=== PATIENT | male | born 1970 | race Caucasian/White ===

== ENCOUNTER 2025-02-15 08:47 | Inpatient (IN) | payer BC, OTHER ==
[~2025-02-15] VITALS: Ht 177.8 cm; Wt 112.0 kg
--- NOTE | 2025-02-15 09:13 | ECG ---
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
[2025-02-15 09:30] VITALS: PULSE 69; RESP 13; O2SAT 96
--- NOTE | 2025-02-15 09:32 | ED.PDOC ---
HPI Comments 54 year old male with PMHx HTN presents to the ED with a chief complaint of palpitations onset 2 weeks. Patient states he has been experiencing intermittent palpations for the past 2 weeks. He stopped taking BP medication November 2024. Patient was driving from [employer] to [employer] for a job, began experiencing palpitations, lightheadedness, RT arm "stiffness", came to ED. Upon ED arrival patient was hypertensive with BP of 173/102. Denies fever, chills, chest pain, shortness of breath, nausea, vomiting, diarrhea, dizziness, blurred vision, numbness/tingling. No other symptoms or modifying factors present at this time. Chief Complaint: Palpitations Time Seen by MD: 09:25 Reviewed Notes: Medications, Allergies Allergies: Coded Allergies: NO KNOWN ALLERGIES (Unverified , 02/15/25) Information Source: Patient Mode of Arrival: Ambulatory Severity: Moderate Timing: Hours Duration: Since onset Prehospital treatment: None Onset: At Rest Cardiac Risk Factors: HTN PE Risk Factors: None History of: None Modifying Factors: Nothing Associated Signs and Symptoms: Palpitations Past Medical History PAST MEDICAL HISTORY: HTN Surgical History: Denies all surgeries Family History Family History: Reviewed,noncontributory to illness, No family hx of Cancer, No family hx of DM, No family hx of Heart handy, No family hx of HTN, No family hx ofKidney handy, No family hx of Liver handy, No family hx of Lung handy, No family hx of Stroke Social History Smoker: Non-Smoker Alcohol: Denies ETOH Use Drugs: Denies Drug Use Lives In: Home Constitutional: denies: chills, diaphoresis, fatigue, fever, malaise, sweats, weakness, others EENTM: denies: blurred vision, double vision, ear bleeding, ear discharge, ear drainage, ear pain, ear ringing, eye pain, eye redness, hearing loss, mouth pain, mouth swelling, nasal discharge, nose bleeding, nose congestion, nose pain, photophobia, tearing, throat pain, throat swelling, voice changes, others Respiratory: denies: cough, hemoptysis, orthopnea, SOB at rest, shortness of breath, SOB with excertion, stridor, wheezing, others Cardiovascular: reports: palpitations; denies: chest pain, dizzy spells, diaph oresis, Dyspnea on exertion, edema, irregular heart beat, left arm pain, lightheadedness, PND, syncope, others Gastrointestinal: denies: abdomen distended, abdominal pain, blood streaked bowels, constipated, diarrhea, dysphagia, difficulty swallowing, hematemesis, melena, nausea, poor appetite, poor fluid intake, rectal bleeding, rectal pain, vomiting, others Genitourinary: denies: burning, dysuria, flank pain, frequency, hematuria, incontinence, penile discharge, penile sore, pain, testicle pain, testicle swelling, urgency, others Neurological: reports: others (lightheadedness); denies: dizziness, fainting, headache, left sided numbness, left sided weakness, numbness, paresthesia, pre- existing deficit, right sided numbness, right sided weakness, seizure, speech problems, tingling, tremors, weakness Musculoskeletal: reports: others (RT arm stifness); denies: back pain, gout, joint pain, joint swelling, muscle pain, muscle stiffness, neck pain Integumetry: denies: bruises, change in color, change in hair/nails, dryness, laceration, lesions, lumps, rash, wounds, others Allergic/Immunocompromised: denies: Difficulty Healing, Frequent Infections, Hives, Itching, others Hematologic/Lymphatic: denies: anemia, blood clots, easy bleeding, easy bruising, swollen glands, others Endocrine: denies: excessive hunger, excessive sweating, excessive thirst, excessive urination, flushing, intolerance to cold, intolerance to heat, unexplained weight gain, unexplained weight loss, others Psychiatric: denies: anxiety, bipolar disorder, depression, hopeless, panic disorder, schizophrenia, sleepless, suicidal, others All Other Systems: Reviewed and Negative Physical Exam General Appearance: No Apparent Distress HEENT: Normal ENT Inspection, Pharynx Normal, TMs Normal Neck: Full Range of Motion, Non-Tender, Normal, Normal Inspection Respiratory: Chest Non-Tender, Lungs Clear, No Accessory Muscle Use, No Respiratory Distress, Normal Breath Sounds Cardiovascular: No Edema, No JVD, No Murmur, No Gallop, Normal Peripheral Pulses, Regular Rate/Rhythm Breast Exam: Deferred Gastrointestinal: No Organomegaly, Non Tender, No Pulsatile Mass, Normal Bowel Sounds, Soft Genitalia: Deferred Pelvic: Deferred Rectal: Deferred Extremities: No calf tenderness, Normal capillary refill, Normal inspection, Normal range of motion, Non-tender, No pedal edema Musculoskeletal : Apperance: Normal Neurologic: Alert, 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 Was a procedure done?: No CP Differential Dx Differential Diagnosis: MAT, NV Differential Diagnosis: CHF, HTN Essential, HTN Accelerated, Medical NonCompliance X-Ray, Labs, Meds, VS Vital Signs Date Time Temp Pulse Resp B/P (MAP) Pulse Ox O2 Delivery O2 Flow Rate FiO2 02/15/25 10:55 97 Room Air* 0 21 02/15/25 09:56 66 02/15/25 09:34 97.7 68 17 160/77 (104) 97 97.7 02/15/25 09:30 69 13 96 Room Air* 0 21 02/15/25 08:58 79 02/15/25 08:48 98.5 71 18 173/102 96 98.5 Lab Test 02/15/25 10:13 Range/Units White Blood Count 7.3 4.4-10.8 10^3/uL Red Blood Count 5.22 4.5-5.90 10^6/uL Hemoglobin 16.4 13.5-17.5 g/dL Hematocrit 47.4 41.0-53.0 % Mean Corpuscular Volume 90.8 80.0-100.0 fL Mean Corpuscular Hemoglobin 31.4 28.0-32.0 pg Mean Corpuscular Hemoglobin Concent 34.6 32.0-36.0 g/dL Red Cell Distribution Width 16.4 H 11.8-14.3 % Platelet Count 216 140-450 10^3/uL Mean Platelet Volume 8.2 6.9-10.8 fL Neutrophils (%) (Auto) 79.8 37.0-80.0 % Lymphocytes (%) (Auto) 12.1 10.0-50.0 % Monocytes (%) (Auto) 7.1 0.0-12.0 % Eosinophils (%) (Auto) 0.6 0.0-7.0 % Basophils (%) (Auto) 0.4 0.0-2.0 % Neutrophils # (Auto) 5.8 1.6-8.6 10 ^3/uL Lymphocytes # (Auto) 0.9 0.4-5.4 10 ^3/uL Monocytes # (Auto) 0.5 0-1.3 10 ^3/uL Eosinophils # (Auto) 0 0-0.8 10 ^3/uL Basophils # (Auto) 0 0-0.2 10 ^3/uL Nucleated Red Blood Cells 0.2 % Sodium Level 139 136-145 mmol/L Potassium Level 4.0 3.5-5.1 mmol/L Chloride Level 101 98-107 mmol/L Carbon Dioxide Level 28 20-31 mmol/L Anion Gap 10 5-15 Blood Urea Nitrogen 10 9-23 mg/dL Creatinine 0.82 0.700-1.30 mg/dL Glomerular Filtration Rate Calc 103 >90 mL/min BUN/Creatinine Ratio 12.2 10.0-20.0 Serum Glucose 100 74-106 mg/dL Calcium Level 10.2 8.7-10.4 mg/dL Troponin I High Sensitivity 12 </=54 ng/L B-Type Natriuretic Peptide 83.81 0-100 pg/mL [place] [id number] Ph: [phone] DIAGNOSTIC IMAGING Diagnostic Imaging Report : [id number] Signed PATIENT: KHARI HORNER ACCT: [id number] UNIT: [id number] : 1970 LOC: ER ROOM / BED: / AGE / SEX: 54 / M ADM STATUS: REG ER SERVICE 1003 ORDERING PHYSICIAN: ANITHA GALDAMEZ MD PROCEDURE(s): CXRP - CHEST PORTABLE REASON: sob ORDER NUMBER(s): [id number], ACCESSION NUMBER(s): [id number] CLINICAL INFORMATION: Shortness of breath. TECHNIQUE: Single AP portable chest radiograph was obtained. COMPARISON: None FINDINGS: Lungs: Clear. Cardiac: Heart size is within normal limits. Pulmonary vasculature: Mildly prominent pulmonary vasculature. Mediastinum/balbir: Unremarkable. Bones: No acute osseous abnormality identified. Other: No other significant findings. IMPRESSION: Mild prominence of the pulmonary vasculature, may be seen with pulmonary vascular congestion in the appropriate clinical setting, although the cardiac silhouette does not appear enlarged. Correlate with clinical findings. ATED BY: CJ HARVEY DO DICTATED DATE/TIME: 02/15/25 1037 SIGNED BY: CJ HARVEY DO SIGNED DATE/TIME: 02/15/25 1037 CC: Time of 1ST Reevaluation: 09:55 Reevaluation 1ST: Unchanged Patient Education/Counseling: Diagnosis, Treatment, Prognosis Family Education/Counseling: No Family Present SEPSIS Sepsis Screen Date sepsis recognized/suspect: Feb 15, 2025 Time Sepsis recognized/suspect: 0849 Recent Procedure: No On Antibiotic Therapy: No Respiratory Rate >20: No Heart Rate >90: No Temp<36 C (96.8 F) or >38.3 C: No SBP <90 or MAP <65 mmHG: No New Acute Mental Status Change: No Is the patient on CPAP, BIPAP,: No Physician Orders Urinalysis (02/15/25 10:03) Chest Portable (02/15/25 10:03) Troponin-I Hs (02/15/25 11:03) Troponin-I Hs (02/15/25 13:03) Electrocardigram (02/15/25 11:03) Electrocardigram (02/15/25 13:03) Vital Signs Date Time Temp Pulse Resp B/P (MAP) Pulse Ox O2 Delivery O2 Flow Rate FiO2 02/15/25 10:55 97 Room Air* 0 21 02/15/25 09:56 66 02/15/25 09:34 97.7 68 17 160/77 (104) 97 97.7 02/15/25 09:30 69 13 96 Room Air* 0 21 02/15/25 08:58 79 02/15/25 08:48 98.5 71 18 173/102 96 98.5 Laboratory Tests Test 02/15/25 10:13 White Blood Count 7.3 10^3/uL (4.4-10.8) Departure 1 Departure Time of Disposition: 11:18 (Patient presented with hypertension and symptoms concerning for hypertensive emergency. Patient is receiving iv blood pressure medications requiring intensive monitoring. Data: 1. I ordered and reviewed the result of at least 3 labs including a CBC, BMP, and Urinalysis. 2. I independently interpreted the following tests: Chest x-ray shows pulmonary vascular congestion. EKG which is Normal Sinus RhythmRisk:This patient has a high risk of morbidity due to further diagnostic testing or treatment and may suffer from an acute cardiac disorder. Workup reveals hypertensive emergency and patient should be admitted for further workup. and possible expert consultation. ) Impression: Primary Impression: Hypertensive urgency Additional Impression: Acute chest pain Disposition: ADMITTED INPATIENT Admit to: Tele Condition: Guarded Critical Care Note Critical Care Time?: Yes Critical care comment: Hypertensive urgency Authorized and Performed by: Anitha Galdamez MD Total critical care time: Approximately 37 minutes Due to a high probability of clinically significant, life threatening deterioration, the patient required my highest level of preparedness to intervene emergently and I personally spent this critical care time directly and personally managing the patient. This critical care time included obtaining a history; examining the patient; pulse oximetry; ordering and review of studies; arranging urgent treatment with development of a management plan; evaluation of patient's response to treatment; frequent reassessment; and, discussions with other providers. This critical care time was performed to assess and manage the high probability of imminent, life-threatening deterioration that could result in multi-organ failure. It was exclusive of separately billable procedures and treating other patients and teaching time. Please see my other sections and the rest of the note for further information on patient assessment and treatment. Stability Stability form required: No Heart Score Heart Score: Heart Score Response (Comments) Value History N/A 0 EKG N/A 0 Age N/A 0 Risk Factors N/A 0 Troponin N/A 0 Total 0 I personally scribed for ANITHA GALDAMEZ MD ([email or web address]) on 02/15/25 at 09:32. Electronically submitted by Elizabeth Cohen ([email or web address]). I personally scribed for ANITHA GALDAMEZ MD ([email or web address]) on 02/15/25 at 09:33. Electronically submitted by Elizabeth Cohen ([email or web address]). I personally scribed for ANITHA GALDAMEZ MD ([email or web address]) on 02/15/25 at 11:14. Electronically submitted by Elizabeth Cohen ([email or web address]). ANITHA GALDAMEZ MD Feb 15, 2025 09:32
--- NOTE | 2025-02-15 10:05 | ECG ---
[facility] Test Date: 2025-02-15 Test Time: 09:56:46 Pat Name: KHARI HORNER Department: ED Room: 0245 Gender: M Manager In Home: JERRI : 1970 Requested By: ANITHA HOLDER Order Number: [id number] Reading MD: Enzo Lopez Measurements Intervals [place] Rate: 66 P: 57 [place]: 118 QRS: 47 QRSD: 113 T: 37 QT: 461 QTc: 484 Interpretive Statements Sinus rhythm Atrial premature complexes Borderline short [place] interval Incomplete right bundle branch block Borderline prolonged QT interval Electronically Signed On 02-17-2025 17:19:08 PST by Enzo Lopez Please click the below link to view image of tracing.
--- NOTE | 2025-02-15 10:39 | DVH ---
CLINICAL INFORMATION: Shortness of breath. TECHNIQUE: Single AP portable chest radiograph was obtained. COMPARISON: None FINDINGS: Lungs: Clear. Cardiac: Heart size is within normal limits. Pulmonary vasculature: Mildly prominent pulmonary vasculature. Mediastinum/balbir: Unremarkable. Bones: No acute osseous abnormality identified. Other: No other significant findings. IMPRESSION: Mild prominence of the pulmonary vasculature, may be seen with pulmonary vascular congestion in the appropriate clinical setting, although the cardiac silhouette does not appear enlarged. Correlate with clinical findings.
[2025-02-15 10:40] LABS: Hematocrit 47.4 % (41.0-53.0); Hemoglobin 16.4 g/dL (13.5-17.5); Mean Corpuscular Hemoglobin 31.4 pg (28.0-32.0); Mean Corpuscular Volume 90.8 fL (80.0-100.0); Nucleated Red Blood Cells % 0.2 %
[2025-02-15 10:47] LABS: Chloride 101 mmol/L (98-107); Potassium 4.0 mmol/L (3.5-5.1); Sodium 139 mmol/L (136-145)
[2025-02-15 10:48] LABS: Anion Gap 10 (5-15); Carbon Dioxide 28 mmol/L (20-31)
[2025-02-15 10:49] LABS: Calcium 10.2 mg/dL (8.7-10.4)
[2025-02-15 10:54] LABS: BUN/Creatinine Ratio 12.2 (10.0-20.0); Blood Urea Nitrogen 10 mg/dL (9-23); Glucose 100 mg/dL (74-106)
[2025-02-15] MEDS ORDERED: ONDANSETRON HCL 4 MG/2 ML VIAL IV PRN (12:15)
[2025-02-15] MEDS ORDERED: NITROGLYCERIN 0.4 MG SL TAB SL PRN (12:15)
[2025-02-15] MEDS ORDERED: DOCUSATE SOD 100 MG CAP PO PRN (12:15)
[2025-02-15] MEDS ORDERED: HYDROcodone-ACET 5/325MG TAB PO PRN (12:15)
[2025-02-15] MEDS ORDERED: ACETAMINOPHEN 325 MG TAB PO PRN (12:15)
--- NOTE | 2025-02-15 12:24 | DVHHP2 ---
History of Present Illness Reason for Visit: Palpitations, dizziness History of Present Illness Trace Walton is a 54-year-old male, with past medical history of hypertension and hyperlipidemia, who came to the hospital for dizziness and palpitations. 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 He pulled over and ate a protein bar. Started to feel better then continued his drive. He began to have palpitations and became dizzy again. He pulled over and called a co-worker to come pick him up and drive him to the hospital. Patient states for the past 2 weeks he has been experiencing intermittent palpitations and dizziness, but his symptoms usually resolve quickly. Patient was taking medications for hypertension and hyperlipidemia, but he stopped them in November. He states he went on a diet in July, has lost a total of 80 pounds, has been monitoring his blood pressure at home. It was improving so he stopped all his medications. He did have labs drawn last week and was planning to follow up with his primary care provider. Cardiovascular: HTN, hyperipidemia Past Surgical History: None Smoke: <1 pack per day (Nicotine puches) ALCOHOL: occassional Drugs: None Lives: with Family Domestic Violence: Neg Review of Systems Constitutional: No: Fever, Chills, Sweats, Weakness, Malaise, Other Eyes: No: Pain, Vision change, Conjunctivae inflammation, Eyelid inflammation, Other, Redness ENT: No: Ear pain, Ear discharge, Nose pain, Nose discharge, Nose congestion, Mouth pain, Mouth swelling, Throat pain, Throat swelling, Other Respiratory: No: Cough, Dry, Shortness of breath, SOB with excertion, Wheezing, Hemoptysis, Pleuritic Pain, Sputum, Wheezing, Other Cardiovascular: Palpitations; No: Chest Pain, Orthopnea, Paroxysmal Noc. Dyspnea, Edema, Lt Headedness, Other Gastrointestinal: No: Nausea, Vomiting, Abdominal Pain, Diarrhea, Constipation, Melena, Hematochezia, Other Genitourinary: No Dysuria, No Frequency, No Incontinence, No Hematuria, No Retention, No Other Musculoskeletal: No: other, neck pain, shoulder pain, arm pain, back pain, hand pain, leg pain, foot pain Skin: No: Rash, Lesions, Jaundice, Bruising, Other Neurological: Other (dizziness, lightheaded); No: Weakness, Numbness, Incoordination, Change in speech, Confusion, Seizures Allergies: Coded Allergies: NO KNOWN ALLERGIES (Unverified , 02/15/25) Exam Vital Signs Vital Signs Date Time Temp Pulse Resp B/P (MAP) Pulse Ox O2 Delivery O2 Flow Rate FiO2 02/15/25 11:49 72 02/15/25 10:55 97 Room Air* 0 21 02/15/25 09:34 97.7 17 160/77 (104) 97.7 General Appearance: Alert, Oriented X3, Cooperative, mild distress, Other (diaphoretic) HEENT: Atraumatic, PERRLA, Mucous membr. moist/pink Respiratory: Clear to auscultation, Normal air movement Cardiovascular: Regular rate, Normal S1, Normal S2, Other (PAC's) Abdominal: Normal bowel sounds, Soft, No tenderness, No hepatospenomegaly Extremities: No clubbing, No cyanosis, No edema, Normal pulses Skin: No rashes, No breakdown, No significant lesion Neuro: Normal gait, Normal speech, Strength at 5/5 X4 ext Psych/Mental Status: Mental status NL, Mood NL Labs/Xrays Labs Test 02/15/25 11:12 02/15/25 10:13 Range/Units Troponin I High Sensitivity 12 </=54 ng/L White Blood Count 7.3 4.4-10.8 10^3/uL Red Blood Count 5.22 4.5-5.90 10^6/uL Hemoglobin 16.4 13.5-17.5 g/dL Hematocrit 47.4 41.0-53.0 % Mean Corpuscular Volume 90.8 80.0-100.0 fL Mean Corpuscular Hemoglobin 31.4 28.0-32.0 pg Mean Corpuscular Hemoglobin Concent 34.6 32.0-36.0 g/dL Red Cell Distribution Width 16.4 H 11.8-14.3 % Platelet Count 216 140-450 10^3/uL Mean Platelet Volume 8.2 6.9-10.8 fL Neutrophils (%) (Auto) 79.8 37.0-80.0 % Lymphocytes (%) (Auto) 12.1 10.0-50.0 % Monocytes (%) (Auto) 7.1 0.0-12.0 % Eosinophils (%) (Auto) 0.6 0.0-7.0 % Basophils (%) (Auto) 0.4 0.0-2.0 % Neutrophils # (Auto) 5.8 1.6-8.6 10 ^3/uL Lymphocytes # (Auto) 0.9 0.4-5.4 10 ^3/uL Monocytes # (Auto) 0.5 0-1.3 10 ^3/uL Eosinophils # (Auto) 0 0-0.8 10 ^3/uL Basophils # (Auto) 0 0-0.2 10 ^3/uL Nucleated Red Blood Cells 0.2 % Sodium Level 139 136-145 mmol/L Potassium Level 4.0 3.5-5.1 mmol/L Chloride Level 101 98-107 mmol/L Carbon Dioxide Level 28 20-31 mmol/L Anion Gap 10 5-15 Blood Urea Nitrogen 10 9-23 mg/dL Creatinine 0.82 0.700-1.30 mg/dL Glomerular Filtration Rate Calc 103 >90 mL/min BUN/Creatinine Ratio 12.2 10.0-20.0 Serum Glucose 100 74-106 mg/dL Calcium Level 10.2 8.7-10.4 mg/dL B-Type Natriuretic Peptide 83.81 0-100 pg/mL TECHNIQUE: Single AP portable chest radiograph was obtained. FINDINGS: Lungs: Clear. Cardiac: Heart size is within normal limits. Pulmonary vasculature: Mildly prominent pulmonary vasculature. Mediastinum/balbir: Unremarkable. Bones: No acute osseous abnormality identified. Other: No other significant findings. IMPRESSION: Mild prominence of the pulmonary vasculature, may be seen with pulmonary vascular congestion in the appropriate clinical setting, although the cardiac silhouette does not appear enlarged. Correlate with clinical findings. SEPSIS Sepsis Screen Date sepsis recognized/suspect: Feb 15, 2025 Time Sepsis recognized/suspect: 1048 Recent Procedure: No On Antibiotic Therapy: No Respiratory Rate >20: No Heart Rate >90: No Temp<36 C (96.8 F) or >38.3 C: No SBP <90 or MAP <65 mmHG: No New Acute Mental Status Change: No Is the patient on CPAP, BIPAP,: No Physician Orders Urinalysis (02/15/25 10:03) Chest Portable (02/15/25 10:03) Troponin-I Hs (02/15/25 13:03) Electrocardigram (02/15/25 11:03) Electrocardigram (02/15/25 13:03) Admit (02/15/25 12:02) Code Status (02/15/25 12:02) 2 Gm Sodium Diet (02/15/25 Lunch) Sodium Chloride Lock (Saline Lock Ns) (02/15/25 14:00) Hydrocodone-Acet 5/325mg Tab ([place] 5/32 (02/15/25 12:15) Ondansetron Hcl (Zofran) (02/15/25 12:15) Docusate Sodium Capsule (Colace Capsule) (02/15/25 12:15) Complete Blood Count (02/16/25 04:00) Comprehensive Metabolic Panel (02/16/25 04:00) Echo 2d Mode Cardiac Dop (02/15/25 12:02) Condition: Serious (02/15/25 12:02) Acetaminophen Tablet (Tylenol Tablet) (02/15/25 12:15) Nitroglycerin Sublingual (Ntrostat Subli (02/15/25 12:15) Morphine Sulfate Injection (02/15/25 12:15) Stat Ekg For Chest Pain (02/15/25 12:02) Notify Md Of Changes From Base (02/15/25 12:02) Dental Service Technician For 24 Hours (02/15/25 12:02) Emergency Dysrhythmia Protocol (02/15/25 12:02) Rhythm Strips Once Every Shift (02/15/25 12:02) Oxygen By Nasal Cannula (02/15/25 12:02) Amlodipine Tablet (Norvasc Tablet) (02/15/25 12:15) Amlodipine Tablet (Norvasc Tablet) (02/16/25 10:00) Atorvastatin (Lipitor) (02/15/25 22:00) Aspirin Chewable Tablet (02/15/25 12:15) Aspirin Chewable Tablet (02/16/25 10:00) Vital Signs Date Time Temp Pulse Resp B/P (MAP) Pulse Ox O2 Delivery O2 Flow Rate FiO2 02/15/25 11:49 72 02/15/25 10:55 97 Room Air* 0 21 02/15/25 09:56 66 02/15/25 09:34 97.7 68 17 160/77 (104) 97 97.7 02/15/25 09:30 69 13 96 Room Air* 0 21 02/15/25 08:58 79 02/15/25 08:48 98.5 71 18 173/102 96 98.5 Laboratory Tests Test 02/15/25 10:13 White Blood Count 7.3 10^3/uL (4.4-10.8) Assessment/Plan Assessment/Plan Assessment: Hypertensive urgency, Palpitations, Uncontrolled hypertension, Hyperlipidemia, Plan: Admit to Tele, Cardiology consult, ECHO, TSH, A1c, Lipid panel, D-Dimer, Start ASA, and Statin, Home medications restated, Plan discussed with: Patient My Orders Orders - DOUG CALLEJAS DOUBLE CUT SAWYER Procedure Category Date Status Time Admit ADMIT 02/15/25 Transmitted 12:02 Code Status CODE 02/15/25 Verified 12:02 2 Gm Sodium Diet DIET 02/15/25 Transmitted Lunch Sodium Chloride Lock PHA 02/15/25 Transmitted (Saline Lock Ns) 14:00 Hydrocodone-Acet PHA 02/15/25 Transmitted 5/325mg Tab ([place] 12:15 Ondansetron Hcl PHA 02/15/25 Transmitted (Zofran) 12:15 Docusate Sodium PHA 02/15/25 Transmitted Capsule (Colace 12:15 Complete Blood Count LAB 02/16/25 Verified 04:00 Comprehensive LAB 02/16/25 Verified Metabolic Panel 04:00 Echo 2d Mode Cardiac US 02/15/25 Transmitted DOP 12:02 Condition: Serious [facility] 02/15/25 Transmitted 12:02 Acetaminophen Tablet [facility] 02/15/25 Transmitted (Tylenol Tablet) 12:15 Nitroglycerin PHA 02/15/25 Transmitted Sublingual (Ntrostat 12:15 Morphine Sulfate PHA 02/15/25 Transmitted Injection 12:15 Stat Ekg For Chest [facility] 02/15/25 Transmitted Pain 12:02 Notify Md Of Changes [facility] 02/15/25 Transmitted From Base 12:02 Dental Service Technician For [facility] 02/15/25 Transmitted 24 Hours 12:02 Emergency Dysrhythmia ROBERT 02/15/25 Transmitted Protocol 12:02 Rhythm Strips Once [facility] 02/15/25 Transmitted Every Shift 12:02 Oxygen By Nasal RT 02/15/25 Transmitted Cannula 12:02 Amlodipine Tablet PHA 02/15/25 Transmitted (Norvasc Tablet) 12:15 Amlodipine Tablet PHA 02/16/25 Transmitted (Norvasc Tablet) 10:00 Atorvastatin (Lipitor) PHA 12/16/25 Verified 22:00 Aspirin Chewable PHA 02/15/25 Verified Tablet 12:15 Aspirin Chewable PHA 02/16/25 Verified Tablet 10:00 Date of Service: Feb 15, 2025 Billing Provider: DOUG CALLEJAS Common Visit Codes: [id number] INP/OBS CARE (MOD) DOUG CALLEJAS Feb 15, 2025 12:24
[2025-02-15] MEDS: LABETALOL HCL 20 MG/4 ML VL IV ONE (12:41)
[2025-02-15] MEDS ORDERED: MORPHINE SULFATE 4 MG/ML SYR/VIAL IV PRN (12:45)
[2025-02-15 13:24] LABS: Urine Protein, UAD TRACE (Negative)
[2025-02-15] MEDS: SODIUM CHLOR 0.9% PF (SALINE LOCK) 10ML VIAL/SYR IV SCH (14:36)
--- NOTE | 2025-02-15 15:42 | DVHINCON2 ---
JHAJJANTONELLANISHANT RESIDENT 02/15/25 1542: Date Seen: Feb 15, 2025 Referring Physician JOE Mcnally Reason for Consultation Hypertensive urgency, palpitations History of Present Illness Patient is a 54-year-old male who came to the hospital with a chief complaint of lightheadedness and palpitations. Patient reported that he [place] on the free[place] when he started feeling lightheaded following which he had a protein shake felt well for a while and then again started to feel lightheaded with palpitations, lightheadedness following which she came to the ER for further evaluation. Patient has a history of hypertension and hyperlipidemia and was taking amlodipine 5 mg daily, olmesartan/hydrochlorothiazide 40/25 mg daily until 3 months ago when he stopped taking his medications. He reports losing about 80 lb since he started keto diet and that is why he stopped taking his medications. Initial ECG in the hospital showed diffuse ST-depression in lateral and inferior leads with mild ST elevation in AVR with a PACs. Patient did not report of any chest pain. Troponin levels were within normal limits Past Medical History Hypertension, hyperlipidemia Past Surgical History Denies Family History Father of [place] in his 80s Social History Previous smoker with 20 pack year smoking history, drink slight alcohol 3-4 times in a week, denies any drug use Allergies: Coded Allergies: NO KNOWN ALLERGIES (Unverified , 02/15/25) Current Medications Current Medications Medications (Trade) Dose Ordered Sig/Jaquan Route PRN Reason Start Time Stop Time Status Last Admin Sodium Chloride (Saline Lock Ns) 10 ml Q8HR IV 02/15/25 14:00 02/15/25 14:36 Acetaminophen/ Hydrocodone Bitart ([place] 5/325MG Tab) 1 tab Q4HP PRN PO MODERATE PAIN (4-6 PAIN SCALE) 02/15/25 12:15 Ondansetron HCl (Zofran) 4 mg Q4HP PRN IV NAUSEA / VOMITING 02/15/25 12:15 Docusate Sodium (Colace Capsule) 100 mg BIDPRN PRN PO FOR CONSTIPATION 02/15/25 12:15 Acetaminophen (Tylenol Tablet) 650 mg Q6HP PRN PO PAIN SCALE 1-3 OR TEMP>100.4 02/15/25 12:15 Nitroglycerin (Ntrostat Sublingual) 0.4 mg Q5MINP PRN SL FOR CHEST PAIN 02/15/25 12:15 Morphine Sulfate 2 mg Q30M PRN IV FOR CHEST PAIN 02/15/25 12:45 Amlodipine Besylate (Norvasc Tablet) 5 mg DAILY PO 02/16/25 10:00 Atorvastatin Calcium (Lipitor) 40 mg HS PO 02/15/25 22:00 Aspirin 81 mg DAILY PO 02/16/25 10:00 Review of Systems Denies any shortness of breath, palpitations, chest pain Vital Signs Vital Signs Date Time Temp Pulse Resp B/P (MAP) Pulse Ox O2 Delivery O2 Flow Rate FiO2 02/15/25 14:01 98.5 62 12 135/75 (95) 98 98.5 02/15/25 10:55 Room Air* 0 21 Physical Exam Skin - Patients skin is warm and dry. HEENT - normocephalic, atraumatic, moist mucous membranes, no scleral icterus, no conjunctival pallor. Neck - full ROM, no LAD, no JVD Pulmonary - B/L clear breath sounds without any wheezing, rales or stridor cardiovascular - regular S1,S2 heard. peripheral pulses normal radial 2+, pedal 2+. GI - soft, nontender abdomen. no hepatospleenomegaly. Bowel sounds normoactive Neurological - Patient is A/O X 4 . Bilateral upper extremity strength 5/5, bilateral lower extremity strength 5/5, no facial droop, normal speech, no tremor, no sensory deficiets. Labs/Diagnostic Data Labs Test 02/15/25 13:07 02/15/25 12:18 02/15/25 10:13 Range/Units Troponin I High Sensitivity 14 </=54 ng/L Urine Color Light-yellow Yellow Urine Clarity Clear Clear Urine pH 5.5 5.0-9.0 Urine Specific [place] 1.021 1.001-1.035 Urine Protein Trace H Negative Urine Ketones 1+ H Negative Urine Blood Negative Negative /uL Urine Nitrite Negative Negative Urine Bilirubin Negative Negative Urine Urobilinogen Normal Negative mg/dL Urine Leukocyte Esterase Negative Negative /uL Urine RBC 1 0 - 3 /hpf Urine Microscopic WBC 1 0-3 /HPF Urine Squamous Epithelial Cells Few <5 /hpf Urine Bacteria None seen None Seen /hpf Urine Mucus Few None Seen Urine Glucose Normal Normal mg/dL White Blood Count 7.3 4.4-10.8 10^3/uL Red Blood Count 5.22 4.5-5.90 10^6/uL Hemoglobin 16.4 13.5-17.5 g/dL Hematocrit 47.4 41.0-53.0 % Mean Corpuscular Volume 90.8 80.0-100.0 fL Mean Corpuscular Hemoglobin 31.4 28.0-32.0 pg Mean Corpuscular Hemoglobin Concent 34.6 32.0-36.0 g/dL Red Cell Distribution Width 16.4 H 11.8-14.3 % Platelet Count 216 140-450 10^3/uL Mean Platelet Volume 8.2 6.9-10.8 fL Neutrophils (%) (Auto) 79.8 37.0-80.0 % Lymphocytes (%) (Auto) 12.1 10.0-50.0 % Monocytes (%) (Auto) 7.1 0.0-12.0 % Eosinophils (%) (Auto) 0.6 0.0-7.0 % Basophils (%) (Auto) 0.4 0.0-2.0 % Neutrophils # (Auto) 5.8 1.6-8.6 10 ^3/uL Lymphocytes # (Auto) 0.9 0.4-5.4 10 ^3/uL Monocytes # (Auto) 0.5 0-1.3 10 ^3/uL Eosinophils # (Auto) 0 0-0.8 10 ^3/uL Basophils # (Auto) 0 0-0.2 10 ^3/uL Nucleated Red Blood Cells 0.2 % Sodium Level 139 136-145 mmol/L Potassium Level 4.0 3.5-5.1 mmol/L Chloride Level 101 98-107 mmol/L Carbon Dioxide Level 28 20-31 mmol/L Anion Gap 10 5-15 Blood Urea Nitrogen 10 9-23 mg/dL Creatinine 0.82 0.700-1.30 mg/dL Glomerular Filtration Rate Calc 103 >90 mL/min BUN/Creatinine Ratio 12.2 10.0-20.0 Serum Glucose 100 74-106 mg/dL Calcium Level 10.2 8.7-10.4 mg/dL B-Type Natriuretic Peptide 83.81 0-100 pg/mL Assessment Hypertensive crisis Premature atrial complexes Dizziness likely due to above Diffuse ST depression in inferior and lateral leads with the elevation in AVR Medication noncompliance Plan/Recommendation - start back on antihypertensive medications with losartan and amlodipine - single antiplatelet therapy with aspirin and high-dose statin - stress test tomorrow Goals of care discussed with the patient for over 18 minutes. Plan discussed with Dr. Gleason Plan discussed with: Patient, Other (RN) NYHA Physical activity limitations: NA Date of Service: Feb 15, 2025 Billing Provider: MINGO GLEASON MD Cardiology Common Codes: [id number] INP/OBS CARE (High) MINGO GLEASON MD 02/15/25 1657: Allergies: Coded Allergies: NO KNOWN ALLERGIES (Unverified , 02/15/25) Plan/Recommendation pt seen with cv team stopped all his meds for bp, bp high pacs on ecg st changes lexiscan stress mpi start bp meds Plan discussed with: Patient Date of Service: Feb 15, 2025 Billing Provider: MINGO GLEASON MD Cardiology Common Codes: NOT BILLABLE PATEL ADAME RESIDENT Feb 15, 2025 15:42 MINGO GLEASON MD Feb 15, 2025 16:57
--- NOTE | 2025-02-15 16:07 | DVHSR ---
APPROVED REPORT EXAM: Two-dimensional and M-mode echocardiogram with Doppler and color Doppler. Blood Pressure: 160/77 mmHg INDICATION Hypertensive urgency Acute chest pain RISK FACTORS Obesity: Height: 5'10", Weight: 254 DIMENSIONS LVDd 5.5 (3.8-5.7cm) LA (2D) 4.5 (1.9-4.0cm) Aortic Root 3.5 (2.0-3.7cm) LVDs 3.7 (2.5-4.0cm) LA (MM) (1.9-4.0cm) Aortic Cusp Exc 4.1 (1.5-2.0cm) EF (%) 60.0 (55-70%) Rt. Atrium 4.3 (1.9-4.0cm) Asc. Aorta 3.5 cm IVSd 1.3 (0.7-1.1cm) RV (D) 4.6 (1.8-2.4cm) PWd 1.3 (0.7-1.1cm) Mitral Valve Mitral Mitral Stenosis E wave 0.96m/s MV Mean GR. mmHg A wave 0.80m/s MV Peak GR. mmHg E/A ratio 1.2 2D MVA cm2 DECEL Time 210ms PRESS 1/2 Time ms Aortic Valve Aortic Valve Aortic Stenosis V1 1.12m/s AO Mean GR. 7mmHg V2 1.74m/s AO Peak GR. 12mmHg LVOT Diameter 2.1 (1.8-2.4cm) Doppler NICHO 2.23cm2 Pulmonic Valve V2 1.11m/s Tricuspid Valve TR Velocity 3.10m/s RVSP 46mmHg Other Information Technically limited study due to body habitus. Conclusion lvef 65% normal lv function rv enlarged borderline biatrial enlargement no severe valve abnormality noted
[2025-02-15 16:44] LABS: Triglycerides 70 mg/dL (< 150)
[2025-02-15 16:47] LABS: Cholesterol 266 mg/dL (< 200); HDL Cholesterol 101 mg/dL (40-59)
[2025-02-15] MEDS: LOSARTAN POTASSIUM 50 MG TAB PO ONE (17:01)
[2025-02-15 18:30] VITALS: BP 155/67; PULSE 62; RESP 18; TEMP 98.3; O2SAT 98
[2025-02-15 18:58] VITALS: RESP 18; O2SAT 98
[2025-02-15 20:00] VITALS: PULSE 61; PULSE 63; RESP 19; O2SAT 98
[2025-02-15 21:00] VITALS: BP 141/85; PULSE 61; RESP 19; TEMP 98.5; O2SAT 98
[2025-02-15] MEDS: ATORVASTATIN 20 MG TAB PO SCH (22:00)
[2025-02-16] VITALS (8 sets, daily range): BP systolic 115–161; BP diastolic 74–88; PULSE 52–64; RESP 16–20; TEMP 97.9–98.2; O2SAT 98–100
[2025-02-16 06:07] LABS: Hematocrit 43.3 % (41.0-53.0); Hemoglobin 14.9 g/dL (13.5-17.5); Mean Corpuscular Hemoglobin 31.3 pg (28.0-32.0); Mean Corpuscular Volume 90.7 fL (80.0-100.0); Nucleated Red Blood Cells % 0.0 %
[2025-02-16 06:38] LABS: Alanine Aminotransferase 32 U/L (7-40); Albumin 3.9 g/dL (3.2-4.8); Alkaline Phosphatase 56 U/L (46-116); Anion Gap 10 (5-15); BUN/Creatinine Ratio 13.5 (10.0-20.0); Blood Urea Nitrogen 12 mg/dL (9-23); Calcium 9.4 mg/dL (8.7-10.4); Carbon Dioxide 28 mmol/L (20-31); Chloride 102 mmol/L (98-107); Glucose 100 mg/dL (74-106); Potassium 3.7 mmol/L (3.5-5.1); Sodium 140 mmol/L (136-145); Total Protein 6.9 g/dL (5.7-8.2)
[2025-02-16 06:39] LABS: Bilirubin, Total 0.7 mg/dL (0.2-1.0)
[2025-02-16] MEDS: REGADENOSON 0.4 MG/5 ML SYRG IV ONE ×2 (08:29→09:23)
[2025-02-16] MEDS: LOSARTAN POTASSIUM 50 MG TAB PO SCH (11:02)
--- NOTE | 2025-02-16 13:09 | DVHPN2 ---
Reviewed: Care Plan, H&P, Labs, Medications, Previous Orders, Radiology Changes from previous H/P or p: No Changes Eyes: No Pain, No Vision change, No Conjunctivae inflammation, No Eyelid inflammation, No Other, No Redness ENT: No Ear pain, No Ear discharge, No Nose pain, No Nose discharge, No Nose congestion, No Mouth pain, No Mouth swelling, No Throat pain, No Throat swelling, No Other Cardiovascular: No Chest Pain; Palpitations; No Orthopnea, No Paroxysmal Noc. Dyspnea, No Edema, No Lt Headedness, No Other Respiratory: No Cough, No Dry, No Shortness of breath, No SOB with excertion, No Wheezing, No Hemoptysis, No Pleuritic Pain, No Sputum, No Other Gastrointestinal: No Nausea, No Vomiting, No Abdominal Pain, No Diarrhea, No Constipation, No Melena, No Hematochezia, No Other Genitourinary: No Dysuria, No Frequency, No Incontinence, No Hematuria, No Retention, No Other Musculoskeletal: No other, No neck pain, No shoulder pain, No arm pain, No back pain, No hand pain, No leg pain, No foot pain Skin: No Rash, No Lesions, No Jaundice, No Bruising, No Other Objective Vitals Vital Signs Date Time Temp Pulse Resp B/P (MAP) Pulse Ox O2 Delivery O2 Flow Rate FiO2 02/16/25 11:03 160/78 02/16/25 09:00 98.0 63 20 99 98.0 02/16/25 08:00 Room Air* 0 21 Intake/Output Intake and Output 02/16/25 07:00 Intake Total 400 ml Balance 400 ml Intake Oral 400 ml Medications Current Medications Medications Dose Ordered Sig/Jaquan Route Start Time Stop Time Status Last Admin Dose Admin Sodium Chloride 10 ml Q8HR IV 02/15/25 14:00 02/16/25 06:00 10 ML Acetaminophen/ Hydrocodone Bitart 1 tab Q4HP PRN PO 02/15/25 12:15 Ondansetron HCl 4 mg Q4HP PRN IV 02/15/25 12:15 Docusate Sodium 100 mg BIDPRN PRN PO 02/15/25 12:15 Acetaminophen 650 mg Q6HP PRN PO 02/15/25 12:15 Nitroglycerin 0.4 mg Q5MINP PRN SL 02/15/25 12:15 Morphine Sulfate 2 mg Q30M PRN IV 02/15/25 12:45 Amlodipine Besylate 5 mg DAILY PO 02/16/25 10:00 02/16/25 11:03 5 MG Atorvastatin Calcium 40 mg HS PO 02/15/25 22:00 Aspirin 81 mg DAILY PO 02/16/25 10:00 02/16/25 11:04 81 MG Losartan Potassium 50 mg DAILY PO 02/16/25 10:00 02/16/25 11:02 50 MG Laboratory Results Laboratory Tests 02/16/25 05:24 Chemistry Test 02/16/25 05:24 Albumin 3.9 g/dL (3.2-4.8) Calcium Level 9.4 mg/dL (8.7-10.4) Total Protein 6.9 g/dL (5.7-8.2) LFT Test 02/16/25 05:24 Alanine Aminotransferase (ALT) 32 U/L (7-40) Alkaline Phosphatase 56 U/L (46-116) Aspartate Amino Transferase (AST) 40 U/L (13-40) Total Bilirubin 0.7 mg/dL (0.2-1.0) Urinalysis Test 02/15/25 12:18 Urine Color Light-yellow (Yellow) Urine Clarity Clear (Clear) Urine pH 5.5 (5.0-9.0) Urine Specific [place] 1.021 (1.001-1.035) Urine Protein Trace (Negative) H Urine Ketones 1+ (Negative) H Urine Blood Negative /uL (Negative) Urine Nitrite Negative (Negative) Urine Bilirubin Negative (Negative) Urine Urobilinogen Normal mg/dL (Negative) Urine Leukocyte Esterase Negative /uL (Negative) Urine RBC 1 /hpf (0 - 3) Urine Microscopic WBC 1 /HPF (0-3) Urine Squamous Epithelial Cells Few /hpf (<5) Urine Bacteria None seen /hpf (None Seen) Urine Mucus Few (None Seen) Urine Glucose Normal mg/dL (Normal) Labs and/or images reviewed: Labs reviewed by me, Image(s) reviewed by me Assessment/Plan Assessment/Plan Hypertensive crisis Premature atrial complexes Hypercholesterolemia: Lipitor Dizziness likely due to above Diffuse ST depression in inferior and lateral leads with the elevation in AVR, cardiology consult appreciated, scheduled for stress test tomorrow, ejection fraction 65 % Medication noncompliance Plan discussed with: Patient Date of Service: Feb 16, 2025 Billing Provider: MATEO IYER MD Common Visit Codes: [id number] INP/OBS CARE(HIGH) AMTEO IYER MD Feb 16, 2025 13:09
--- NOTE | 2025-02-16 16:39 | DVHPN2 ---
Progress Note Date Seen: Feb 16, 2025 Resident Creating Document: LILY ADAMEELIZABETH RESIDENT Medical Necessity Reason Pt with a Central, PICC or Fol: No Subjective Review of Systems Patient denied any chest pain, lightheadedness, shortness of breath Objective vital signs Vital Sign Date Time Temp Pulse Resp B/P (MAP) Pulse Ox O2 Delivery O2 Flow Rate FiO2 02/16/25 13:00 98.2 56 18 138/76 (96) 99 98.2 02/16/25 08:00 Room Air* 0 21 Total Intake and Output 02/15/25 02/15/25 02/16/25 15:00 23:00 07:00 Intake Total 400 ml Balance 400 ml medications Current Medications Medications Dose Ordered Sig/Jaquan Route Start Time Stop Time Status Last Admin Dose Admin Sodium Chloride 10 ml Q8HR IV 02/15/25 14:00 02/16/25 06:00 10 ML Acetaminophen/ Hydrocodone Bitart 1 tab Q4HP PRN PO 02/15/25 12:15 Ondansetron HCl 4 mg Q4HP PRN IV 02/15/25 12:15 Docusate Sodium 100 mg BIDPRN PRN PO 02/15/25 12:15 Acetaminophen 650 mg Q6HP PRN PO 02/15/25 12:15 Nitroglycerin 0.4 mg Q5MINP PRN SL 02/15/25 12:15 Morphine Sulfate 2 mg Q30M PRN IV 02/15/25 12:45 Amlodipine Besylate 5 mg DAILY PO 02/16/25 10:00 02/16/25 11:03 5 MG Atorvastatin Calcium 40 mg HS PO 02/15/25 22:00 Aspirin 81 mg DAILY PO 02/16/25 10:00 02/16/25 11:04 81 MG Losartan Potassium 50 mg DAILY PO 02/16/25 10:00 02/16/25 11:02 50 MG Examination Skin - Patients skin is warm and dry. HEENT - normocephalic, atraumatic, moist mucous membranes, no scleral icterus, no conjunctival pallor. Neck - full ROM, no LAD, no JVD Pulmonary - B/L clear breath sounds without any wheezing, rales or stridor cardiovascular - regular S1,S2 heard. peripheral pulses normal radial 2+, pedal 2+. GI - soft, nontender abdomen. no hepatospleenomegaly. Bowel sounds normoactive Neurological - Patient is A/O X 4 . Bilateral upper extremity strength 5/5, bilateral lower extremity strength 5/5, no facial droop, normal speech, no tremor, no sensory deficiets. laboratory and microbiology Laboratory Tests 02/16/25 05:24 Test 02/16/25 05:24 Range/Units Serum Glucose 100 74-106 mg/dL Problem List/Assessment/Plan Problem List/Assessment/Plan Hypertensive crisis Premature atrial complexes Dizziness likely due to above Diffuse ST depression in inferior and lateral leads with the elevation in AVR Mild pulmonary hypertension Dyslipidemia Medication noncompliance Plan/Recommendation - continue on antihypertensive medications with losartan and amlodipine - continue on high-dose statin ( ASCVD >7.5% risk ) - stress test negative for ischemia - echo shows LVEF 65% with normal LV function, RV enlarged, borderline biatrial enlargement, no severe valvular abnormality Patient cleared for discharge from Cardiology. Strict adherence to medications Follow up with the PCP/Cardiology outpatient Goals of care discussed with the patient for over 14 minutes. Plan discussed with Dr. Barksdale Plan discussed with: Patient My Orders My Orders Orders - PATEL ADAME Procedure Category Date Status Time Cardiolite Multiple NM 02/16/25 Taken 00:03 2 Gm Sodium Diet DIET 02/16/25 Transmitted Lunch PATEL ADAME RESIDENT Feb 16, 2025 16:39
[2025-02-16] MEDS: NICOTINE 14 MG/24HR TOPICAL PATCH TD ONE (21:54)
[2025-02-17 01:00] VITALS: BP 141/90; PULSE 57; RESP 16; TEMP 98.2; O2SAT 98
[2025-02-17 05:00] VITALS: BP 132/87; PULSE 57; RESP 18; TEMP 98; O2SAT 99
[2025-02-17 08:00] VITALS: PULSE 60; PULSE 65; RESP 16; O2SAT 99
[2025-02-17 08:48] VITALS: BP 145/91; PULSE 56; RESP 16; TEMP 98; O2SAT 99
[2025-02-17] MEDS: NICOTINE 14 MG/24HR TOPICAL PATCH TD SCH (09:44)
[2025-02-17] MEDS ORDERED: ATOR80TA PO (10:04)
[2025-02-17] MEDS ORDERED: AMLO1TAB23 PO (10:04)
[2025-02-17] MEDS ORDERED: NIC21P TOP (10:04)
[2025-02-17] MEDS ORDERED: LOSA50TA12 PO (10:04)
--- NOTE | 2025-02-17 10:05 | DVHPN2 ---
Reviewed: Care Plan, H&P, Labs, Medications, Previous Orders, Radiology Changes from previous H/P or p: No Changes Eyes: No Pain, No Vision change, No Conjunctivae inflammation, No Eyelid inflammation, No Other, No Redness ENT: No Ear pain, No Ear discharge, No Nose pain, No Nose discharge, No Nose congestion, No Mouth pain, No Mouth swelling, No Throat pain, No Throat swelling, No Other Cardiovascular: No Chest Pain; Palpitations; No Orthopnea, No Paroxysmal Noc. Dyspnea, No Edema, No Lt Headedness, No Other Respiratory: No Cough, No Dry, No Shortness of breath, No SOB with excertion, No Wheezing, No Hemoptysis, No Pleuritic Pain, No Sputum, No Other Gastrointestinal: No Nausea, No Vomiting, No Abdominal Pain, No Diarrhea, No Constipation, No Melena, No Hematochezia, No Other Genitourinary: No Dysuria, No Frequency, No Incontinence, No Hematuria, No Retention, No Other Musculoskeletal: No other, No neck pain, No shoulder pain, No arm pain, No back pain, No hand pain, No leg pain, No foot pain Skin: No Rash, No Lesions, No Jaundice, No Bruising, No Other Objective Vitals Vital Signs Date Time Temp Pulse Resp B/P (MAP) Pulse Ox O2 Delivery O2 Flow Rate FiO2 02/17/25 09:45 145/91 02/17/25 08:48 98.0 56 16 99 98.0 02/16/25 20:00 Room Air* 0 21 Intake/Output Intake and Output 02/17/25 07:00 Intake Total 1536 ml Balance 1536 ml Intake Oral 1536 ml # Voids 5 # Bowel Movements 1 Medications Current Medications Medications Dose Ordered Sig/Jaquan Route Start Time Stop Time Status Last Admin Dose Admin Sodium Chloride 10 ml Q8HR IV 02/15/25 14:00 02/17/25 06:00 10 ML Acetaminophen/ Hydrocodone Bitart 1 tab Q4HP PRN PO 02/15/25 12:15 Ondansetron HCl 4 mg Q4HP PRN IV 02/15/25 12:15 Docusate Sodium 100 mg BIDPRN PRN PO 02/15/25 12:15 Acetaminophen 650 mg Q6HP PRN PO 02/15/25 12:15 Nitroglycerin 0.4 mg Q5MINP PRN SL 02/15/25 12:15 Morphine Sulfate 2 mg Q30M PRN IV 02/15/25 12:45 Amlodipine Besylate 5 mg DAILY PO 02/16/25 10:00 02/17/25 09:45 5 MG Atorvastatin Calcium 40 mg HS PO 02/15/25 22:00 02/16/25 21:51 40 MG Aspirin 81 mg DAILY PO 02/16/25 10:00 02/17/25 09:45 81 MG Losartan Potassium 50 mg DAILY PO 02/16/25 10:00 02/17/25 09:45 50 MG Nicotine 1 patch DAILY TD 02/17/25 10:00 Laboratory Results Laboratory Tests 02/16/25 05:24 Urinalysis Test 02/15/25 12:18 Urine Color Light-yellow (Yellow) Urine Clarity Clear (Clear) Urine pH 5.5 (5.0-9.0) Urine Specific [place] 1.021 (1.001-1.035) Urine Protein Trace (Negative) H Urine Ketones 1+ (Negative) H Urine Blood Negative /uL (Negative) Urine Nitrite Negative (Negative) Urine Bilirubin Negative (Negative) Urine Urobilinogen Normal mg/dL (Negative) Urine Leukocyte Esterase Negative /uL (Negative) Urine RBC 1 /hpf (0 - 3) Urine Microscopic WBC 1 /HPF (0-3) Urine Squamous Epithelial Cells Few /hpf (<5) Urine Bacteria None seen /hpf (None Seen) Urine Mucus Few (None Seen) Urine Glucose Normal mg/dL (Normal) Labs and/or images reviewed: Labs reviewed by me, Image(s) reviewed by me Assessment/Plan Assessment/Plan Hypertensive crisis: Losartan amlodipine Premature atrial complexes Hypercholesterolemia: Lipitor Dizziness likely due to above Stress test negative for ischemia Echo 65 % ejection fraction Diffuse ST depression in inferior and lateral leads with the elevation in AVR, cardiology consult appreciated, Medication noncompliance Plan discussed with: Patient Date of Service: Feb 17, 2025 Billing Provider: MATEO IYER MD Common Visit Codes: [id number] INP/OBS CARE(HIGH) MATEO IYER MD Feb 17, 2025 10:05
--- NOTE | 2025-02-17 10:11 | DVHDS2 ---
Discharge Summary Date of Admission Feb 15, 2025 at 12:02 Date of Discharge: Feb 17, 2025 Admitting Diagnosis Chest pain Wounds: None Labs/Diagnostic Data: Laboratory Results Test 02/16/25 05:24 02/15/25 13:07 02/15/25 12:18 02/15/25 10:13 White Blood Count 6.0 10^3/uL (4.4-10.8) Red Blood Count 4.77 10^6/uL (4.5-5.90) Hemoglobin 14.9 g/dL (13.5-17.5) Hematocrit 43.3 % (41.0-53.0) Mean Corpuscular Volume 90.7 fL (80.0-100.0) Mean Corpuscular Hemoglobin 31.3 pg (28.0-32.0) Mean Corpuscular Hemoglobin Concent 34.5 g/dL (32.0-36.0) Red Cell Distribution Width 16.6 % (11.8-14.3) Platelet Count 198 10^3/uL (140-450) Mean Platelet Volume 8.3 fL (6.9-10.8) Neutrophils (%) (Auto) 59.7 % (37.0-80.0) Lymphocytes (%) (Auto) 26.1 % (10.0-50.0) Monocytes (%) (Auto) 9.8 % (0.0-12.0) Eosinophils (%) (Auto) 3.8 % (0.0-7.0) Basophils (%) (Auto) 0.6 % (0.0-2.0) Neutrophils # (Auto) 3.6 10 ^3/uL (1.6-8.6) Lymphocytes # (Auto) 1.6 10 ^3/uL (0.4-5.4) Monocytes # (Auto) 0.6 10 ^3/uL (0-1.3) Eosinophils # (Auto) 0.2 10 ^3/uL (0-0.8) Basophils # (Auto) 0 10 ^3/uL (0-0.2) Nucleated Red Blood Cells 0.0 % Sodium Level 140 mmol/L (136-145) Potassium Level 3.7 mmol/L (3.5-5.1) Chloride Level 102 mmol/L (98-107) Carbon Dioxide Level 28 mmol/L (20-31) Anion Gap 10 (5-15) Blood Urea Nitrogen 12 mg/dL (9-23) Creatinine 0.89 mg/dL (0.700-1.30) Glomerular Filtration Rate Calc 101 mL/min (>90) BUN/Creatinine Ratio 13.5 (10.0-20.0) Serum Glucose 100 mg/dL (74-106) Calcium Level 9.4 mg/dL (8.7-10.4) Total Bilirubin 0.7 mg/dL (0.2-1.0) Aspartate Amino Transferase (AST) 40 U/L (13-40) Alanine Aminotransferase (ALT) 32 U/L (7-40) Alkaline Phosphatase 56 U/L (46-116) Total Protein 6.9 g/dL (5.7-8.2) Albumin 3.9 g/dL (3.2-4.8) D-Dimer, Quantitative 0.80 mg/L FEU (0.0-0.49) Troponin I High Sensitivity 14 ng/L (</=54) Triglycerides Level 70 mg/dL (< 150) Cholesterol Level 266 mg/dL (< 200) LDL Cholesterol 148 mg/dL (< 100) HDL Cholesterol 101 mg/dL (40-59) Thyroid Stimulating Hormone (TSH) 0.80 uIU/mL (0.55-4.78) Urine Color Light-yellow (Yellow) Urine Clarity Clear (Clear) Urine pH 5.5 (5.0-9.0) Urine Specific [place] 1.021 (1.001-1.035) Urine Protein Trace (Negative) Urine Ketones 1+ (Negative) Urine Blood Negative /uL (Negative) Urine Nitrite Negative (Negative) Urine Bilirubin Negative (Negative) Urine Urobilinogen Normal mg/dL (Negative) Urine Leukocyte Esterase Negative /uL (Negative) Urine RBC 1 /hpf (0 - 3) Urine Microscopic WBC 1 /HPF (0-3) Urine Squamous Epithelial Cells Few /hpf (<5) Urine Bacteria None seen /hpf (None Seen) Urine Mucus Few (None Seen) Urine Glucose Normal mg/dL (Normal) Hemoglobin A1c 5.0 % A1C (<5.7) B-Type Natriuretic Peptide 83.81 pg/mL (0-100) Other Laboratory Tests 02/16/25 05:24 Brief Hx & Hospital Course: 54-year-old male with a history of hypertension not taking any medication for the last six months came in complaining of chest pain blood pressure 170 treated with the losartan amlodipine patient has had some premature atrial complexes patient also had very high cholesterol treated with the Lipitor mild dizziness due to above seen by Cardiology. Stress test negative echo 65 percent ejection fraction advised compliance with the medications and cleared for discharge. Prescription for amlodipine Cozaar and Lipitor transmitted to the pharmacy advised to stop smoking. Advised to fill prescriptions today and take medications regularly Asymptomatic at the time of discharge Consults/Reason for consult Cardiology Operations or Procedures Echocardiogram Cardiolite stress test Condition at Discharge: Fair Final Diagnosis/Problems List Hypertensive crisis: Losartan amlodipine Premature atrial complexes Hypercholesterolemia: Lipitor Dizziness likely due to above Stress test negative for ischemia Echo 65 % ejection fraction Diffuse ST depression in inferior and lateral leads with the elevation in AVR, cardiology consult appreciated, Medication noncomplianc Discharge Disposition: Home Discharge Instruct/Medications Diet: Cardiac 2g Na,low cholest Activity: Light activity Follow Up/Referral: Use medications as prescribed Follow up with your primary Dr and 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 Patient was counseled about treatment plan, medications, possible side effects, patientverbalized understanding. All questions were answered to the best of my ability. This discharge took greater then 30 minutes in planning, reviewing documentation, counseling the patient, and discussing with other team members." ASSESSMENT ASSESSMENT Hospital Course Improved Assessment Hypertensive crisis: Losartan amlodipine Premature atrial complexes Hypercholesterolemia: Lipitor Dizziness likely due to above Stress test negative for ischemia Echo 65 % ejection fraction Diffuse ST depression in inferior and lateral leads with the elevation in AVR, cardiology consult appreciated, Medication noncomplianc Date of Service: Feb 17, 2025 Billing Provider: MATEO IYER MD Common Visit Codes: [id number] DISCH DAY >30min MATEO IYER MD Feb 17, 2025 10:11
[2025-02-17 12:13] VITALS: BP 145/91; PULSE 70; RESP 16; TEMP 98; O2SAT 99
[2025-02-17 13:00] VITALS: BP 128/75; PULSE 78; RESP 18; TEMP 97.8; O2SAT 95
== END 2025-02-17 12:40 | disposition home or self-care (01) | DRG 305 ==
LOC: ER 08:47 → OVERFLOW 12:02 → EAST 18:39
PROVIDERS: ADMIT Family Medicine; ATTEND Family Medicine
DX: I16.0 Hypertensive urgency (principal); I27.20 Pulmonary hypertension, unspecified; I10 Essential (primary) hypertension; E78.00 Pure hypercholesterolemia, unspecified; I49.1 Atrial premature depolarization; F17.200 Nicotine dependence, unspecified, uncomplicated; Z82.49 Family history of ischemic heart disease and other diseases of the circulatory system; Z91.148 Patient's other noncompliance with medication regimen for other reason; Z71.6 Tobacco abuse counseling
CPT/HCPCS: 36415; 71045; 80048; 80053; 80061; 81001; 83036; 83880; 84443; 84484; 85025; 85379; 93005; 93017; 93306; 99291; G0378